=== PATIENT | male | born 1950 ===

== ENCOUNTER 2018-12-16 16:43 | Inpatient (IN) | payer MEDICARE ==
[2018-12-16] MEDS ORDERED: NACL 0.9% 1000 ML 1,000 ML IV ONE (17:16)
[2018-12-16 18:13] LABS: Hematocrit 39.9 % (35.5-45.6); Hemoglobin 13.8 gm/dl (11.8-15.2); Mean Corpuscular HGB Conc 35 % (32-34); Mean Corpuscular Volume 91 fl (84-94); Platelet Count 170 K/mm3 (140-440); Red Blood Count 4.38 M/mm3 (3.65-5.03); Red Cell Distribution Width 14.7 % (13.2-15.2)
--- NOTE | 2018-12-16 18:28 | Emergency Department Report ---
ED Altered Mental Status HPI - General Chief Complaint: Altered Mental Status Stated Complaint: BACK PAIN Time Seen by Provider: 12/16/18 17:03 Source: family Mode of arrival: Stretcher Limitations: Altered Mental Status - History of Present Illness Initial Comments: 68-year-old male presents to ED with altered mental status. Patient has history of alcohol abuse, hep C, liver cirrhosis. Patient lives with his sister who states that he has been lethargic since last night. Sister is unsure if his mental status is from possibly being intoxicated. Patient states his last alcoholic drink was this morning. Patient reports back and bilateral leg pain to nurse, however, denies pain when I ask. MD Complaint: altered mental status -: Last night Severity: moderate Consistency of Symptoms: constant Context: alcohol abuse, liver disease Associated Symptoms: denies: chest pain, fever/chills, headaches, nausea/vomiting - Related Data Home Medications Medication Instructions Recorded Confirmed Last Taken amLODIPine [Norvasc] 5 mg PO DAILY 12/16/18 12/16/18 Unknown Allergies Allergy/AdvReac Type Severity Reaction Status Date / Time Penicillins Allergy Unknown Verified 12/16/18 17:56 ED Review of Systems ROS: Stated complaint: BACK PAIN Other details as noted in HPI Comment: All other systems reviewed and negative Constitutional: denies: chills, fever Respiratory: denies: shortness of breath Cardiovascular: denies: chest pain Gastrointestinal: denies: vomiting Musculoskeletal: back pain Neurological: weakness (generalized) ED Past Medical Hx - Past Medical History Previous Medical History?: Yes Hx CVA: No Hx Congestive Heart Failure: No Hx Diabetes: No Hx Deep Vein Thrombosis: No Hx GERD: No Hx of Cancer: No Hx Arthritis: No Hx Headaches / Migraines: No Hx Asthma: No Hx COPD: No Hx Dementia: No - Surgical History Past Surgical History?: No - Social History Smoking Status: Current Every Day Smoker Substance Use Type: Alcohol, Marijuana - Medications Home Medications: Home Medications Medication Instructions Recorded Confirmed Last Taken Type amLODIPine [Norvasc] 5 mg PO DAILY 12/16/18 12/16/18 Unknown History ED Physical Exam - General Limitations: Altered Mental Status General appearance: lethargic - Head Head exam: Present: atraumatic, normocephalic - Eye Eye exam: Present: normal appearance, PERRL, EOMI - ENT ENT exam: Present: mucous membranes dry - Neck Neck exam: Present: normal inspection - Respiratory Respiratory exam: Present: normal lung sounds bilaterally. Absent: respiratory distress - Cardiovascular Cardiovascular Exam: Present: regular rate, normal rhythm - GI/Abdominal GI/Abdominal exam: Present: soft. Absent: distended, tenderness - Extremities Exam Extremities exam: Present: normal inspection - Back Exam Back exam: Absent: tenderness - Neurological Exam Neurological exam: Present: alert, altered, other (moves all extremities). Absent: oriented X3 (oriented to self and place (states he is at a clinic)) - Psychiatric Psychiatric exam: Present: normal affect, normal mood - Skin Skin exam: Present: warm, dry, intact, normal color ED Course Vital Signs 12/16/18 12/16/18 12/16/18 17:21 17:24 17:26 Temperature 97.5 F L Pulse Rate 136 H 88 Respiratory 17 20 Rate Blood Pressure 156/77 Blood Pressure [Left] O2 Sat by Pulse 100 Oximetry 12/16/18 12/16/18 12/16/18 17:30 18:00 18:41 Temperature Pulse Rate 85 95 H 100 H Respiratory 26 H 17 28 H Rate Blood Pressure 153/81 140/92 165/91 Blood Pressure [Left] O2 Sat by Pulse 98 99 98 Oximetry 12/16/18 12/16/18 12/16/18 18:51 19:00 19:11 Temperature Pulse Rate 95 H 104 H 99 H Respiratory 23 20 28 H Rate Blood Pressure 165/91 159/89 140/92 Blood Pressure [Left] O2 Sat by Pulse 99 97 Oximetry 12/16/18 12/16/18 12/16/18 19:20 19:21 19:30 Temperature 97.6 F Pulse Rate 96 H 95 H 90 Respiratory 16 14 13 Rate Blood Pressure 149/73 142/80 Blood Pressure 149/73 [Left] O2 Sat by Pulse 96 97 Oximetry 12/16/18 12/16/18 12/16/18 19:41 19:51 20:01 Temperature Pulse Rate 96 H Respiratory 20 24 27 H Rate Blood Pressure 142/80 142/80 142/80 Blood Pressure [Left] O2 Sat by Pulse 99 98 96 Oximetry 12/16/18 12/16/18 12/16/18 20:11 20:21 20:31 Temperature Pulse Rate Respiratory 25 H 27 H 16 Rate Blood Pressure 142/80 142/80 142/80 Blood Pressure [Left] O2 Sat by Pulse 95 95 97 Oximetry 12/16/18 12/16/18 12/16/18 20:41 20:51 21:00 Temperature Pulse Rate Respiratory 21 24 23 Rate Blood Pressure 142/80 142/80 142/68 Blood Pressure [Left] O2 Sat by Pulse 97 97 97 Oximetry 12/16/18 12/16/18 12/16/18 21:11 21:21 21:29 Temperature Pulse Rate Respiratory 19 19 16 Rate Blood Pressure 142/68 142/68 Blood Pressure [Left] O2 Sat by Pulse 97 97 Oximetry 12/16/18 12/16/18 12/16/18 21:31 21:41 21:50 Temperature 98 F Pulse Rate 78 Respiratory 24 24 16 Rate Blood Pressure 142/68 142/68 142/68 Blood Pressure 142/68 [Left] O2 Sat by Pulse 98 98 98 Oximetry - Lab Data Result diagrams: 12/17/18 05:14 12/17/18 05:14 Lab Results 12/16/18 12/16/18 12/16/18 Range/Units 17:49 17:49 17:49 WBC 7.1 (4.5-11.0) K/mm3 RBC 4.38 (3.65-5.03) M/mm3 Hgb 13.8 (11.8-15.2) gm/dl Hct 39.9 (35.5-45.6) % MCV 91 (84-94) fl MCH 32 (28-32) pg MCHC 35 H (32-34) % RDW 14.7 (13.2-15.2) % Plt Count 170 (140-440) K/mm3 Add Manual Diff Complete Total Counted 100 Seg Neuts % (Manual) 94.0 H (40.0-70.0) % Band Neutrophils % 0 % Lymphocytes % (Manual) 5.0 L (13.4-35.0) % Reactive Lymphs % (Man) 0 % Monocytes % (Manual) 1.0 (0.0-7.3) % Eosinophils % (Manual) 0 (0.0-4.3) % Basophils % (Manual) 0 (0.0-1.8) % Metamyelocytes % 0 % Myelocytes % 0 % Promyelocytes % 0 % Blast Cells % 0 % Nucleated RBC % Not Reportable Seg Neutrophils # Man 6.7 (1.8-7.7) K/mm3 Band Neutrophils # 0.0 K/mm3 Lymphocytes # (Manual) 0.4 L (1.2-5.4) K/mm3 Abs React Lymphs (Man) 0.0 K/mm3 Monocytes # (Manual) 0.1 (0.0-0.8) K/mm3 Eosinophils # (Manual) 0.0 (0.0-0.4) K/mm3 Basophils # (Manual) 0.0 (0.0-0.1) K/mm3 Metamyelocytes # 0.0 K/mm3 Myelocytes # 0.0 K/mm3 Promyelocytes # 0.0 K/mm3 Blast Cells # 0.0 K/mm3 WBC Morphology Not Reportable Hypersegmented Neuts Not Reportable Hyposegmented Neuts Not Reportable Hypogranular Neuts Not Reportable Smudge Cells Not Reportable Toxic Granulation Not Reportable Toxic Vacuolation Not Reportable Dohle Bodies Not Reportable Pelger-Huet Anomaly Not Reportable Mildred Rods Not Reportable Platelet Estimate Consistent w auto Clumped Platelets Not Reportable Plt Clumps, EDTA Not Reportable Large Platelets Not Reportable Giant Platelets Not Reportable Platelet Satelliting Not Reportable Plt Morphology Comment Not Reportable RBC Morphology Not Reportable Dimorphic RBCs Not Reportable Polychromasia Not Reportable Hypochromasia Not Reportable Poikilocytosis Few Anisocytosis Few Microcytosis Not Reportable Macrocytosis Not Reportable Spherocytes Not Reportable Pappenheimer Bodies Not Reportable Sickle Cells Not Reportable Target Cells Not Reportable Tear Drop Cells Not Reportable Ovalocytes Not Reportable Helmet Cells Not Reportable [place] Bodies Not Reportable [place] Rings Not Reportable Aneudy Cells Not Reportable Bite Cells Not Reportable Crenated Cell Not Reportable Elliptocytes Not Reportable Acanthocytes (Spur) Not Reportable Rouleaux Not Reportable Hemoglobin C Crystals Not Reportable Schistocytes Not Reportable Malaria parasites Not Reportable Skyler Bodies Not Reportable Hem Pathologist Commnt No Sodium 135 L (137-145) mmol/L Potassium 4.6 (3.6-5.0) mmol/L Chloride 96.5 L (98-107) mmol/L Carbon Dioxide 21 L (22-30) mmol/L Anion Gap 22 mmol/L BUN 8 L (9-20) mg/dL Creatinine 0.8 (0.8-1.5) mg/dL Estimated GFR > 60 ml/min BUN/Creatinine Ratio 10 % Glucose 66 L (75-100) mg/dL POC Glucose (70-105) Calcium 9.5 (8.4-10.2) mg/dL Total Bilirubin 1.10 (0.1-1.2) mg/dL AST 111 H (5-40) units/L ALT 28 (7-56) units/L Alkaline Phosphatase 144 H (35-129) units/L Ammonia 33.0 (25-60) umol/L Total Protein 7.8 (6.3-8.2) g/dL Albumin 3.7 L (3.9-5) g/dL Albumin/Globulin Ratio 0.9 % Urine Color (Yellow) Urine Turbidity (Clear) Urine pH (5.0-7.0) Ur Specific [place] (1.003-1.030) Urine Protein (Negative) mg/dL Urine Glucose (UA) (Negative) mg/dL Urine Ketones (Negative) mg/dL Urine Blood (Negative) Urine Nitrite (Negative) Urine Bilirubin (Negative) Urine Urobilinogen (<2.0) mg/dL Ur Leukocyte Esterase (Negative) Urine WBC (Auto) (0.0-6.0) /HPF Urine RBC (Auto) (0.0-6.0) /HPF Urine Bacteria (Auto) (Negative) /HPF Urine Mucus /HPF Salicylates (2.8-20.0) mg/dL Urine Opiates Screen Urine Methadone Screen Acetaminophen (10.0-30.0) ug/mL Ur Barbiturates Screen Ur Phencyclidine Scrn Ur Amphetamines Screen U Benzodiazepines Scrn Urine Cocaine Screen U Marijuana (THC) Screen Drugs of Abuse Note Plasma/Serum Alcohol (0-0.07) % 12/16/18 12/16/18 12/16/18 Range/Units 17:49 17:49 17:49 WBC (4.5-11.0) K/mm3 RBC (3.65-5.03) M/mm3 Hgb (11.8-15.2) gm/dl Hct (35.5-45.6) % MCV (84-94) fl MCH (28-32) pg MCHC (32-34) % RDW (13.2-15.2) % Plt Count (140-440) K/mm3 Add Manual Diff Total Counted Seg Neuts % (Manual) (40.0-70.0) % Band Neutrophils % % Lymphocytes % (Manual) (13.4-35.0) % Reactive Lymphs % (Man) % Monocytes % (Manual) (0.0-7.3) % Eosinophils % (Manual) (0.0-4.3) % Basophils % (Manual) (0.0-1.8) % Metamyelocytes % % Myelocytes % % Promyelocytes % % Blast Cells % % Nucleated RBC % Seg Neutrophils # Man (1.8-7.7) K/mm3 Band Neutrophils # K/mm3 Lymphocytes # (Manual) (1.2-5.4) K/mm3 Abs React Lymphs (Man) K/mm3 Monocytes # (Manual) (0.0-0.8) K/mm3 Eosinophils # (Manual) (0.0-0.4) K/mm3 Basophils # (Manual) (0.0-0.1) K/mm3 Metamyelocytes # K/mm3 Myelocytes # K/mm3 Promyelocytes # K/mm3 Blast Cells # K/mm3 WBC Morphology Hypersegmented Neuts Hyposegmented Neuts Hypogranular Neuts Smudge Cells Toxic Granulation Toxic Vacuolation Dohle Bodies Pelger-Huet Anomaly Mildred Rods Platelet Estimate Clumped Platelets Plt Clumps, EDTA Large Platelets Giant Platelets Platelet Satelliting Plt Morphology Comment RBC Morphology Dimorphic RBCs Polychromasia Hypochromasia Poikilocytosis Anisocytosis Microcytosis Macrocytosis Spherocytes Pappenheimer Bodies Sickle Cells Target Cells Tear Drop Cells Ovalocytes Helmet Cells [place] Bodies [place] Rings Wing Cells Bite Cells Crenated Cell Elliptocytes Acanthocytes (Spur) Rouleaux Hemoglobin C Crystals Schistocytes Malaria parasites Skyler Bodies Hem Pathologist Commnt Sodium (137-145) mmol/L Potassium (3.6-5.0) mmol/L Chloride (98-107) mmol/L Carbon Dioxide (22-30) mmol/L Anion Gap mmol/L BUN (9-20) mg/dL Creatinine (0.8-1.5) mg/dL Estimated GFR ml/min BUN/Creatinine Ratio % Glucose (75-100) mg/dL POC Glucose (70-105) Calcium (8.4-10.2) mg/dL Total Bilirubin (0.1-1.2) mg/dL AST (5-40) units/L ALT (7-56) units/L Alkaline Phosphatase (35-129) units/L Ammonia (25-60) umol/L Total Protein (6.3-8.2) g/dL Albumin (3.9-5) g/dL Albumin/Globulin Ratio % Urine Color (Yellow) Urine Turbidity (Clear) Urine pH (5.0-7.0) Ur Specific [place] (1.003-1.030) Urine Protein (Negative) mg/dL Urine Glucose (UA) (Negative) mg/dL Urine Ketones (Negative) mg/dL Urine Blood (Negative) Urine Nitrite (Negative) Urine Bilirubin (Negative) Urine Urobilinogen (<2.0) mg/dL Ur Leukocyte Esterase (Negative) Urine WBC (Auto) (0.0-6.0) /HPF Urine RBC (Auto) (0.0-6.0) /HPF Urine Bacteria (Auto) (Negative) /HPF Urine Mucus /HPF Salicylates < 0.3 L (2.8-20.0) mg/dL Urine Opiates Screen Urine Methadone Screen Acetaminophen < 5.0 L (10.0-30.0) ug/mL Ur Barbiturates Screen Ur Phencyclidine Scrn Ur Amphetamines Screen U Benzodiazepines Scrn Urine Cocaine Screen U Marijuana (THC) Screen Drugs of Abuse Note Plasma/Serum Alcohol < 0.01 (0-0.07) % 12/16/18 12/16/18 12/16/18 Range/Units 19:27 19:32 19:36 WBC (4.5-11.0) K/mm3 RBC (3.65-5.03) M/mm3 Hgb (11.8-15.2) gm/dl Hct (35.5-45.6) % MCV (84-94) fl MCH (28-32) pg MCHC (32-34) % RDW (13.2-15.2) % Plt Count (140-440) K/mm3 Add Manual Diff Total Counted Seg Neuts % (Manual) (40.0-70.0) % Band Neutrophils % % Lymphocytes % (Manual) (13.4-35.0) % Reactive Lymphs % (Man) % Monocytes % (Manual) (0.0-7.3) % Eosinophils % (Manual) (0.0-4.3) % Basophils % (Manual) (0.0-1.8) % Metamyelocytes % % Myelocytes % % Promyelocytes % % Blast Cells % % Nucleated RBC % Seg Neutrophils # Man (1.8-7.7) K/mm3 Band Neutrophils # K/mm3 Lymphocytes # (Manual) (1.2-5.4) K/mm3 Abs React Lymphs (Man) K/mm3 Monocytes # (Manual) (0.0-0.8) K/mm3 Eosinophils # (Manual) (0.0-0.4) K/mm3 Basophils # (Manual) (0.0-0.1) K/mm3 Metamyelocytes # K/mm3 Myelocytes # K/mm3 Promyelocytes # K/mm3 Blast Cells # K/mm3 WBC Morphology Hypersegmented Neuts Hyposegmented Neuts Hypogranular Neuts Smudge Cells Toxic Granulation Toxic Vacuolation Dohle Bodies Pelger-Huet Anomaly Mildred Rods Platelet Estimate Clumped Platelets Plt Clumps, EDTA Large Platelets Giant Platelets Platelet Satelliting Plt Morphology Comment RBC Morphology Dimorphic RBCs Polychromasia Hypochromasia Poikilocytosis Anisocytosis Microcytosis Macrocytosis Spherocytes Pappenheimer Bodies Sickle Cells Target Cells Tear Drop Cells Ovalocytes Helmet Cells [place] Bodies [place] Rings Wing Cells Bite Cells Crenated Cell Elliptocytes Acanthocytes (Spur) Rouleaux Hemoglobin C Crystals Schistocytes Malaria parasites Skyler Bodies Hem Pathologist Commnt Sodium (137-145) mmol/L Potassium (3.6-5.0) mmol/L Chloride (98-107) mmol/L Carbon Dioxide (22-30) mmol/L Anion Gap mmol/L BUN (9-20) mg/dL Creatinine (0.8-1.5) mg/dL Estimated GFR ml/min BUN/Creatinine Ratio % Glucose (75-100) mg/dL POC Glucose 49 L (70-105) Calcium (8.4-10.2) mg/dL Total Bilirubin (0.1-1.2) mg/dL AST (5-40) units/L ALT (7-56) units/L Alkaline Phosphatase (35-129) units/L Ammonia (25-60) umol/L Total Protein (6.3-8.2) g/dL Albumin (3.9-5) g/dL Albumin/Globulin Ratio % Urine Color Yellow (Yellow) Urine Turbidity Clear (Clear) Urine pH 5.0 (5.0-7.0) Ur Specific [place] 1.012 (1.003-1.030) Urine Protein <15 mg/dl (Negative) mg/dL Urine Glucose (UA) Neg (Negative) mg/dL Urine Ketones Tr (Negative) mg/dL Urine Blood Sm (Negative) Urine Nitrite Neg (Negative) Urine Bilirubin Neg (Negative) Urine Urobilinogen < 2.0 (<2.0) mg/dL Ur Leukocyte Esterase Neg (Negative) Urine WBC (Auto) 1.0 (0.0-6.0) /HPF Urine RBC (Auto) 2.0 (0.0-6.0) /HPF Urine Bacteria (Auto) 1+ (Negative) /HPF Urine Mucus Few /HPF Salicylates (2.8-20.0) mg/dL Urine Opiates Screen Presumptive negative Urine Methadone Screen Presumptive negative Acetaminophen (10.0-30.0) ug/mL Ur Barbiturates Screen Presumptive negative Ur Phencyclidine Scrn Presumptive negative Ur Amphetamines Screen Presumptive negative U Benzodiazepines Scrn Presumptive positive Urine Cocaine Screen Presumptive negative U Marijuana (THC) Screen Presumptive positive Drugs of Abuse Note Disclamer Plasma/Serum Alcohol (0-0.07) % - Radiology Data Radiology results: report reviewed, image reviewed - Medical Decision Making 68 yo M with altered mental status since yesterday. Hx of alcohol abuse, Hep C, liver cirrhosis. CT head normal. ETOH level negative. Ammonia within normal range. Vitals normal, pt afebrile. WBCs normal, no evidence of acute infection. Glucose resulted at 66 on labs. Accucheck was done and resulted at 49. One amp of D50 given. Drug screen also positive for benzos and marijuana. It is unclear if pt has prescription for any benzodiazepines. This could poss ibly be cause of mental status change. Pt admitted to hospitalist, Dr King, for further management. - Differential Diagnosis intoxication, hepatic encephalopathy, intracranial abnormlity, infection Critical care attestation.: If time is entered above; I have spent that time in minutes in the direct care of this critically ill patient, excluding procedure time. ED Disposition Clinical Impression: Encephalopathy, Hypoglycemia, Benzodiazepine intoxication Disposition: DC-09 OP ADMIT IP TO THIS HOSP Is pt being admited?: Yes Condition: Stable Time of Disposition: 19:30
--- NOTE | 2018-12-16 18:30 | History and Physical Report ---
History of Present Illness Chief complaint: He is getting more confused History of present illness: 68 YO Male with HCV, ETOH Dependence with Cirrhosis, Hepatic Failure, Nicotine Dependence presents to ED for evaluation. Pt is confused, Stuporous and unable to provide history. Pt history is provided by sister who is at bedside during exam and interview. Pt sister reports that patient has experienced a decreased level of consciousness over the past 1 day with worsening symptoms over the past 12 hours. As per sister, the patient had an drink of alcohol this morning. EMS notified and upon arrival the patient found to be Encephalopathic. Pt transported to [facility]. Pt seen and evaluated in ED and found to have Encepha lopathy, Acidosis, Hypoglycemia, Cirrhosis, and Liver Failure. No further history obtainable. Pt has a positive gag reflex and in able to protect his airway. Pt admitted to medical floor. No prior admission for review. All listed medication reconciled at time of admission. Past History Past Medical History: hepatitis, other (cirrhosis) Past Surgical History: No surgical history, Other (reviewed) Social history: single, smoking Family history: no significant family history (reviewed) Medications and Allergies Allergies Allergy/AdvReac Type Severity Reaction Status Date / Time Penicillins Allergy Unknown Verified 12/16/18 17:56 Home Medications Medication Instructions Recorded Confirmed Last Taken Type amLODIPine [Norvasc] 5 mg PO DAILY 12/16/18 12/16/18 Unknown History Review of Systems ROS unobtainable: due to mental status Exam - Constitutional Vitals: Temp Pulse Resp BP Pulse Ox 97.5 F L 88 20 156/77 100 12/16/18 17:24 12/16/18 17:26 12/16/18 17:26 12/16/18 17:26 12/16/18 17:26 General appearance: Present: mild distress, cachectic, disheveled - EENT Eyes: Present: miosis ENT: hearing intact, clear oral mucosa - Neck Neck: Present: supple, normal ROM - Respiratory Respiratory effort: normal Respiratory: bilateral: CTA - Cardiovascular Heart Sounds: Present: S1 & S2. Absent: rub, click - Extremities Extremities: pulses symmetrical, No edema Peripheral Pulses: within normal limits - Abdominal General gastrointestinal: Present: soft, non-tender, non-distended, normal bowel sounds Male genitourinary: Present: normal - Integumentary Integumentary: Present: clear, warm, dry, clammy, decreased turgor - Musculoskeletal Musculoskeletal: generalized weakness - Psychiatric Psychiatric: no appropriate mood/affect, no intact judgment & insight, no memory intact - Neurologic Neurologic: CNII-XII intact, moves all extremities, no gait normal Results - Labs CBC & Chem 7: 12/16/18 17:49 12/16/18 17:49 Labs: Abnormal lab results 12/16/18 Range/Units 17:49 MCHC 35 H (32-34) % Assessment and Plan - Patient Problems (1) Encephalopathy Current Visit: No Status: Acute Plan to address problem: CT Head, Neuro checks, thyroid panel, neuro checks, seizure precautions, aspiration precautions, fall precautions. . (2) Liver failure Current Visit: No Status: Acute Qualifiers: Hepatic coma status: with hepatic coma Plan to address problem: CT Head, Neuro check, Liver Function Tests, (3) Acidosis Current Visit: No Status: Acute Plan to address problem: IVF resuscitation therapy, repeat bmp in AM. (4) Nicotine dependence Current Visit: No Status: Acute Qualifiers: Nicotine product type: cigarettes Plan to address problem: Smoking cessation counseling, (5) Hypoglycemia Current Visit: No Status: Acute Plan to address problem: D5 Infusion, accu check, supportive care. (6) DVT prophylaxis Current Visit: No Status: Acute Plan to address problem: SCD to BLE while in bed,
--- NOTE | 2018-12-16 18:31 | Cat Scan Report ---
PROCEDURE: CT HEAD/BRAIN WO CON TECHNIQUE: Computerized tomography of the head was performed without contrast material. CT DOSE LENGTH PRODUCT: 1841 mGycm HISTORY: ams COMPARISONS: None . FINDINGS: Cerebrovascular atherosclerotic calcification is present in the skull base arteries. No acute air-fluid level visualized in the included air-filled sinuses. Bone windows demonstrate no acute fracture. There is ventricular and sulcal prominence compatible with age-appropriate global cerebrocortical atr ophy. Low attenuation regions in the cerebral white matter, while nonspecific, are present and usually attr ibuted to chronic ischemic gliosis. It can occur secondary to the normal aging process, hypertension, or arterial sclerotic vascular dise ase. The differential includes demyelination in the appropriate clinical setting. The brain contains no mass, mass effect, hemorrhage, or acute infarct. There is no extra-axial intracranial bleed or brain bleed. There is no midline shift. IMPRESSION: No acute CVA, intracranial bleed, or brain mass This document is electronically signed by Ender Yanez MD., December 16 2018 06:29:58 PM ET
[2018-12-16 18:35] LABS: Alanine Aminotransferase 28 units/L (7-56); Albumin 3.7 g/dL (3.9-5); BUN/Creatinine Ratio 10; Blood Urea Nitrogen 8 mg/dL (9-20); Calcium 9.5 mg/dL (8.4-10.2); Hemolysis Index 1
[2018-12-16 19:18] LABS: Anisocytosis Few; Basophils % (Manual) 0 % (0.0-1.8); Eosinophils % (Manual) 0 % (0.0-4.3); Platelet Estimate Consistent w Auto; Total Cells Counted 100
[2018-12-16 19:19] LABS: Poikilocytosis Few
[2018-12-16] MEDS ORDERED: D50W (25GM) Syringe IV ONE (19:28)
--- NOTE | 2018-12-16 19:29 | XRay Report ---
PROCEDURE: Chest. TECHNIQUE: Portable AP view. HISTORY: Altered mental status. COMPARISONS: None. FINDINGS: The heart size is normal. There is faint calcification in the aortic arch. The lungs are clear and mi ldly hyperinflated. There are no pleural effusions. The soft tissues and regional skeleton are unrema rkable. IMPRESSION: Mild COPD. This document is electronically signed by Binh Ramirez MD., December 16 2018 07:28:12 PM ET
[2018-12-16 19:46] LABS: Bacteria,Urine 1+ /HPF (Negative); Bilirubin,Urine NEG (Negative); Blood,Urine SM (Negative); Color,Urine Yellow (Yellow); Mucus,Urine FEW /HPF; Protein,Urine <15 mg/dL mg/dL (Negative); Urobilinogen,Urine < 2.0 mg/dL (<2.0)
[2018-12-16 19:53] LABS: Amphetamine Screen,Urine PRESUMPTIVE NEGATIVE; Cocaine Screen,Urine PRESUMPTIVE NEGATIVE; Methadone Screen,Urine PRESUMPTIVE NEGATIVE; Opiate Screen,Urine PRESUMPTIVE NEGATIVE
[2018-12-16] MEDS ORDERED: SODIUM CHLORIDE FLUSH SYRINGE 10 ML IV PRN (20:00)
[2018-12-16] MEDS ORDERED: PROVENTIL IH PRN (20:00)
[2018-12-16] MEDS ORDERED: ZOFRAN IV PRN (20:00)
[2018-12-16 20:21] LABS: Benzodiazepines Screen,Urine PRESUMPTIVE POSITIVE; Cannabinoid Screen,Urine PRESUMPTIVE POSITIVE
[2018-12-16] MEDS ORDERED: VITAMIN B-1 100 MG, FOLVITE 1 MG, INFUVITE 10 ML in NACL 0.9% 1000 ML 1,000 ML IV ONE (21:00)
[2018-12-16 21:19] LABS: Free T4 (Free Thyroxine) 1.17 ng/dL (0.76-1.46)
[2018-12-16] MEDS: SODIUM CHLORIDE FLUSH SYRINGE 10 ML IV SCH (22:00)
[2018-12-17 05:42] LABS: Basophils # (Auto) 0.1 K/mm3 (0.0-0.1); Eosinophils % (Auto) 0.5 % (0.0-4.3); Hematocrit 37.4 % (35.5-45.6); Hemoglobin 12.8 gm/dl (11.8-15.2); Lymphocytes # (Auto) 1.2 K/mm3 (1.2-5.4); Lymphocytes % (Auto) 18.6 % (13.4-35.0); Mean Corpuscular HGB Conc 34 % (32-34); Mean Corpuscular Volume 91 fl (84-94); Monocytes # (Auto) 0.7 K/mm3 (0.0-0.8); Monocytes % (Auto) 11.3 % (0.0-7.3); Platelet Count 146 K/mm3 (140-440); Red Cell Distribution Width 14.7 % (13.2-15.2)
[2018-12-17 06:05] LABS: Alanine Aminotransferase 21 units/L (7-56); BUN/Creatinine Ratio 10; Blood Urea Nitrogen 8 mg/dL (9-20); Calcium 8.6 mg/dL (8.4-10.2); Hemolysis Index 4
[2018-12-17] MEDS: TYLENOL PO PRN (09:43)
[2018-12-17] MEDS ORDERED: ATIVAN IV PRN (12:41)
--- NOTE | 2018-12-17 12:44 | Progress Note ---
Assessment and Plan Assessment and plan: 68 YO Male with HCV, ETOH Dependence with Cirrhosis, Hepatic Failure, Nicotine Dependence presents to ED for evaluation. P he was brought in by his sister because he was stuporous and confused, has a history of alcohol abuse and marijuana abuse and tobacco abuse Past History Past Medical History: hepatitis, other (cirrhosis) Encephalopathy CT Head, Neuro checks, thyroid panel, neuro checks, seizure precautions, aspiration precautions, fall precautions. . Liver failure CT Head, Neuro check, Liver Function Tests, Acidosis IVF resuscitation therapy, repeat bmp in AM. etoh dependence and withdrawal - ciwa protocol, thiamine and folate -d5 containing IVF -preventative health counseling performed for 17 minutes Nicotine dependence Smoking cessation counseling, > 10 minutes -nicotine patch prn htn cont norvasc Hypoglycemia D5 Infusion, accu check, supportive care. DVT prophylaxis SCD to BLE while in bed, History Interval history: Patient has been last week, less confused, has very poor appetite Review of systems Constitutional: No fevers CVS: No chest pain, no orthopnea, no dyspnea on exertion, no pedal edema GI: No abdominal pain, no diarrhea, no vomiting, no constipation Respiratory: No shortness of breath, no wheezing, no coughing Hospitalist Physical - Physical exam Narrative exam: General.: Appears chronically ill, cachectic HEENT: Moist mucous membranes, extraocular muscles intact, no lymphadenopathy Neck: supple Cardiac: S1-S2 heard Lungs: clear to auscultation bilaterally Abdomen: soft , nontender, nondistended, bowel sounds positive Extremities: no edema clubbing or cyanosis Skin: no rash or lesions Neurologic: no gross focal deficits Psych: calm, and cooperative - Constitutional Vitals: Temp Pulse Resp BP Pulse Ox 97.6 F 51 L 18 152/76 100 12/17/18 11:50 12/17/18 11:50 12/17/18 11:50 12/17/18 11:50 12/17/18 11:50 General appearance: Present: mild distress, cachectic, disheveled Results - Labs CBC & Chem 7: 12/17/18 05:14 12/17/18 13:23 Labs: Laboratory Last Values WBC 6.4 K/mm3 (4.5-11.0) 12/17/18 05:14 RBC 4.10 M/mm3 (3.65-5.03) 12/17/18 05:14 Hgb 12.8 gm/dl (11.8-15.2) 12/17/18 05:14 Hct 37.4 % (35.5-45.6) 12/17/18 05:14 MCV 91 fl (84-94) 12/17/18 05:14 MCH 31 pg (28-32) 12/17/18 05:14 MCHC 34 % (32-34) 12/17/18 05:14 RDW 14.7 % (13.2-15.2) 12/17/18 05:14 Plt Count 146 K/mm3 (140-440) 12/17/18 05:14 Lymph % (Auto) 18.6 % (13.4-35.0) 12/17/18 05:14 [place] % (Auto) 11.3 % (0.0-7.3) H 12/17/18 05:14 Eos % (Auto) 0.5 % (0.0-4.3) 12/17/18 05:14 Baso % (Auto) 1.0 % (0.0-1.8) 12/17/18 05:14 Lymph # 1.2 K/mm3 (1.2-5.4) 12/17/18 05:14 [place] # 0.7 K/mm3 (0.0-0.8) 12/17/18 05:14 Eos # 0.0 K/mm3 (0.0-0.4) 12/17/18 05:14 Baso # 0.1 K/mm3 (0.0-0.1) 12/17/18 05:14 Add Manual Diff Complete 12/16/18 17:49 Total Counted 100 12/16/18 17:49 Seg Neutrophils % 68.6 % (40.0-70.0) 12/17/18 05:14 Seg Neuts % (Manual) 94.0 % (40.0-70.0) H 12/16/18 17:49 0 % 12/16/18 17:49 5.0 % (13.4-35.0) L 12/16/18 17:49 Reactive Lymphs % (Man) 0 % 12/16/18 17:49 1.0 % (0.0-7.3) 12/16/18 17:49 0 % (0.0-4.3) 12/16/18 17:49 0 % (0.0-1.8) 12/16/18 17:49 0 % 12/16/18 17:49 0 % 12/16/18 17:49 0 % 12/16/18 17:49 0 % 12/16/18 17:49 Nucleated RBC % Not Reportable 12/16/18 17:49 Seg Neutrophils # 4.4 K/mm3 (1.8-7.7) 12/17/18 05:14 Seg Neutrophils # Man 6.7 K/mm3 (1.8-7.7) 12/16/18 17:49 Band Neutrophils # 0.0 K/mm3 12/16/18 17:49 0.4 K/mm3 (1.2-5.4) L 12/16/18 17:49 Abs React Lymphs (Man) 0.0 K/mm3 12/16/18 17:49 0.1 K/mm3 (0.0-0.8) 12/16/18 17:49 0.0 K/mm3 (0.0-0.4) 12/16/18 17:49 0.0 K/mm3 (0.0-0.1) 12/16/18 17:49 0.0 K/mm3 12/16/18 17:49 0.0 K/mm3 12/16/18 17:49 0.0 K/mm3 12/16/18 17:49 Blast Cells # 0.0 K/mm3 12/16/18 17:49 WBC Morphology Not Reportable 12/16/18 17:49 Hypersegmented Neuts Not Reportable 12/16/18 17:49 Hyposegmented Neuts Not Reportable 12/16/18 17:49 Hypogranular Neuts Not Reportable 12/16/18 17:49 Not Reportable 12/16/18 17:49 Not Reportable 12/16/18 17:49 Not Reportable 12/16/18 17:49 Not Reportable 12/16/18 17:49 Not Reportable 12/16/18 17:49 Not Reportable 12/16/18 17:49 Consistent w auto 12/16/18 17:49 Not Reportable 12/16/18 17:49 Plt Clumps, EDTA Not Reportable 12/16/18 17:49 Not Reportable 12/16/18 17:49 Not Reportable 12/16/18 17:49 Not Reportable 12/16/18 17:49 Plt Morphology Comment Not Reportable 12/16/18 17:49 RBC Morphology Not Reportable 12/16/18 17:49 Dimorphic RBCs Not Reportable 12/16/18 17:49 Not Reportable 12/16/18 17:49 Not Reportable 12/16/18 17:49 Few 12/16/18 17:49 Few 12/16/18 17:49 Not Reportable 12/16/18 17:49 Not Reportable 12/16/18 17:49 Not Reportable 12/16/18 17:49 Not Reportable 12/16/18 17:49 Not Reportable 12/16/18 17:49 Not Reportable 12/16/18 17:49 Not Reportable 12/16/18 17:49 Not Reportable 12/16/18 17:49 Not Reportable 12/16/18 17:49 Not Reportable 12/16/18 17:49 Not Reportable 12/16/18 17:49 Not Reportable 12/16/18 17:49 Not Reportable 12/16/18 17:49 Not Reportable 12/16/18 17:49 Not Reportable 12/16/18 17:49 Acanthocytes (Spur) Not Reportable 12/16/18 17:49 Rouleaux Not Reportable 12/16/18 17:49 Not Reportable 12/16/18 17:49 Not Reportable 12/16/18 17:49 Not Reportable 12/16/18 17:49 Not Reportable 12/16/18 17:49 Hem Pathologist Commnt No 12/16/18 17:49 Sodium 136 mmol/L (137-145) L 12/17/18 05:14 Potassium 4.1 mmol/L (3.6-5.0) 12/17/18 05:14 Chloride 101.5 mmol/L (98-107) 12/17/18 05:14 Carbon Dioxide 21 mmol/L (22-30) L 12/17/18 05:14 18 mmol/L 12/17/18 05:14 BUN 8 mg/dL (9-20) L 12/17/18 05:14 0.8 mg/dL (0.8-1.5) 12/17/18 05:14 Estimated GFR > 60 ml/min 12/17/18 05:14 10 % 06/15/19 05:14 Glucose 72 mg/dL (75-100) L 12/17/18 05:14 POC Glucose 138 (70-105) H 12/16/18 20:33 Calcium 8.6 mg/dL (8.4-10.2) 12/17/18 05:14 1.00 mg/dL (0.1-1.2) 12/17/18 05:14 AST 73 units/L (5-40) H 12/17/18 05:14 ALT 21 units/L (7-56) 12/17/18 05:14 115 units/L (35-129) 12/17/18 05:14 33.0 umol/L (25-60) 12/16/18 17:49 6.5 g/dL (6.3-8.2) 12/17/18 05:14 3.0 g/dL (3.9-5) L 12/17/18 05:14 0.9 % 12/17/18 05:14 TSH 1.770 mlU/mL (0.270-4.200) 12/16/18 Unknown Free T4 1.17 ng/dL (0.76-1.46) 12/16/18 Unknown Yellow (Yellow) 12/16/18 19:27 Clear (Clear) 12/16/18 19:27 5.0 (5.0-7.0) 12/16/18 19:27 Ur Specific [place] 1.012 (1.003-1.030) 12/16/18 19:27 <15 mg/dl mg/dL (Negative) 12/16/18 19:27 Neg mg/dL (Negative) 12/16/18 19:27 Tr mg/dL (Negative) 12/16/18 19:27 Sm (Negative) 12/16/18 19:27 Neg (Negative) 12/16/18 19:27 Neg (Negative) 12/16/18 19:27 < 2.0 mg/dL (<2.0) 12/16/18 19:27 Ur Leukocyte Esterase Neg (Negative) 12/16/18 19:27 1.0 /HPF (0.0-6.0) 12/16/18 19:27 2.0 /HPF (0.0-6.0) 12/16/18 19:27 1+ /HPF (Negative) 12/16/18 19:27 Few /HPF 12/16/18 19:27 Salicylates < 0.3 mg/dL (2.8-20.0) L 12/16/18 17:49 Presumptive negative 12/16/18 19:36 Presumptive negative 12/16/18 19:36 Acetaminophen < 5.0 ug/mL (10.0-30.0) L 12/16/18 17:49 Ur Barbiturates Screen Presumptive negative 12/16/18 19:36 Ur Phencyclidine Scrn Presumptive negative 12/16/18 19:36 Ur Amphetamines Screen Presumptive negative 12/16/18 19:36 U Benzodiazepines Scrn Presumptive positive 12/16/18 19:36 Presumptive negative 12/16/18 19:36 U Marijuana (THC) Screen Presumptive positive 12/16/18 19:36 Disclamer 12/16/18 19:36 Plasma/Serum Alcohol < 0.01 % (0-0.07) 12/16/18 17:49 Active Medications - Current Medications Current Medications: Generic Name Dose Route Start Last Admin Trade Name Freq PRN Reason Stop Dose Admin Acetaminophen 650 mg 12/16/18 20:00 12/17/18 09:43 Tylenol PO 650 mg Q4H PRN Administration Pain MILD(1-3)/Fever >100.5/ESPITIA Albuterol 2.5 mg 12/16/18 20:00 Proventil IH Q4HRT PRN Shortness Of Breath Amlodipine Besylate 5 mg 12/18/18 10:00 Norvasc PO DAILY RICO Lorazepam 2 mg 12/17/18 12:41 Ativan PO Q1H PRN CIWA-Ar 8-15 Lorazepam 4 mg 12/17/18 12:41 Ativan IV Q1H PRN CIWA-Ar 16-25 Lorazepam 4 mg 12/17/18 12:41 Ativan IV Q15MIN PRN CIWA-Ar >25 Ondansetron HCl 4 mg 12/16/18 20:00 Zofran IV Q8H PRN Nausea And Vomiting Sodium Chloride 10 ml 12/16/18 22:00 12/16/18 22:00 Sodium Chloride Flush Syringe 10 Ml IV 10 ml BID RICO Administration Sodium Chloride 10 ml 12/16/18 20:00 Sodium Chloride Flush Syringe 10 Ml IV PRN PRN LINE FLUSH
[2018-12-17] MEDS: D5/0.45NS 1,000 ML IV SCH (13:39)
[2018-12-17] MEDS: VITAMIN B-1 PO SCH (13:39)
[2018-12-17] MEDS: FOLVITE PO SCH (13:40)
[2018-12-17] MEDS: SODIUM CHLORIDE FLUSH SYRINGE 10 ML IV SCH ×2 (13:41→22:53)
[2018-12-17] MEDS: NORVASC PO SCH (13:51)
[2018-12-17 14:36] LABS: Albumin 3.1 g/dL (3.9-5); BUN/Creatinine Ratio 13; Blood Urea Nitrogen 9 mg/dL (9-20); Calcium 8.9 mg/dL (8.4-10.2); Hemolysis Index 54
[2018-12-17] MEDS: ATIVAN IV PRN (22:56)
[2018-12-18] MEDS: ATIVAN IV PRN (04:57)
[2018-12-18] MEDS: ATIVAN PO PRN ×3 (06:21→21:36)
[2018-12-18] MEDS: HABITROL TD SCH (09:48)
[2018-12-18] MEDS: SODIUM CHLORIDE FLUSH SYRINGE 10 ML IV SCH ×2 (09:48→21:37)
[2018-12-18] MEDS: VITAMIN B-1 PO SCH (09:48)
[2018-12-18] MEDS: FOLVITE PO SCH (09:48)
[2018-12-18] MEDS: NORVASC PO SCH (09:49)
--- NOTE | 2018-12-18 10:51 | Progress Note ---
Assessment and Plan Assessment and plan: 68 YO Male with HCV, ETOH Dependence with Cirrhosis, Hepatic Failure, Nicotine Dependence presents to ED for evaluation. P he was brought in by his sister because he was stuporous and confused, has a history of alcohol abuse and marijuana abuse and tobacco abuse Past History Past Medical History: hepatitis, other (cirrhosis) Acute metabolic Encephalopathy CT Head, Neuro checks, thyroid panel, neuro checks, seizure precautions, aspiration precautions, fall precautions. . Liver failure CT Head, Neuro check, Liver Function Tests, Acidosis IVF resuscitation therapy, repeat bmp in AM. etoh dependence and withdrawal - ciwa protocol, thiamine and folate -d5 containing IVF -preventative health counseling performed for 17 minutes Nicotine dependence Smoking cessation counseling, > 10 minutes -nicotine patch prn htn cont norvasc Hypoglycemia D5 Infusion, accu check, supportive care. Severe malnutrition Continue nutritional supplements, dietitian consult DVT prophylaxis SCD to BLE while in bed Case discussed with patient's sister History Interval history: Patient has been last week, less confused, has very poor appetite Review of systems Constitutional: No fevers CVS: No chest pain, no orthopnea, no dyspnea on exertion, no pedal edema GI: No abdominal pain, no diarrhea, no vomiting, no constipation Respiratory: No shortness of breath, no wheezing, no coughing Hospitalist Physical - Physical exam Narrative exam: General.: Appears chronically ill, cachectic HEENT: Moist mucous membranes, extraocular muscles intact, no lymphadenopathy Neck: supple Cardiac: S1-S2 heard Lungs: clear to auscultation bilaterally Abdomen: soft , nontender, nondistended, bowel sounds positive Extremities: no edema clubbing or cyanosis Skin: no rash or lesions Neurologic: no gross focal deficits Psych: calm, and cooperative - Constitutional Vitals: Temp Pulse Resp BP Pulse Ox 97.4 F L 67 18 158/79 98 12/18/18 07:22 12/18/18 09:49 12/18/18 07:22 12/18/18 09:49 12/18/18 10:00 General appearance: Present: mild distress, cachectic, disheveled Results - Labs CBC & Chem 7: 12/17/18 05:14 12/17/18 13:23 Labs: Laboratory Last Values WBC 6.4 K/mm3 (4.5-11.0) 12/17/18 05:14 RBC 4.10 M/mm3 (3.65-5.03) 12/17/18 05:14 Hgb 12.8 gm/dl (11.8-15.2) 12/17/18 05:14 Hct 37.4 % (35.5-45.6) 12/17/18 05:14 MCV 91 fl (84-94) 12/17/18 05:14 MCH 31 pg (28-32) 12/17/18 05:14 MCHC 34 % (32-34) 12/17/18 05:14 RDW 14.7 % (13.2-15.2) 12/17/18 05:14 Plt Count 146 K/mm3 (140-440) 12/17/18 05:14 Lymph % (Auto) 18.6 % (13.4-35.0) 12/17/18 05:14 [place] % (Auto) 11.3 % (0.0-7.3) H 12/17/18 05:14 Eos % (Auto) 0.5 % (0.0-4.3) 12/17/18 05:14 Baso % (Auto) 1.0 % (0.0-1.8) 12/17/18 05:14 Lymph # 1.2 K/mm3 (1.2-5.4) 12/17/18 05:14 [place] # 0.7 K/mm3 (0.0-0.8) 12/17/18 05:14 Eos # 0.0 K/mm3 (0.0-0.4) 12/17/18 05:14 Baso # 0.1 K/mm3 (0.0-0.1) 12/17/18 05:14 Add Manual Diff Complete 12/16/18 17:49 Total Counted 100 12/16/18 17:49 Seg Neutrophils % 68.6 % (40.0-70.0) 12/17/18 05:14 Seg Neuts % (Manual) 94.0 % (40.0-70.0) H 12/16/18 17:49 0 % 12/16/18 17:49 5.0 % (13.4-35.0) L 12/16/18 17:49 Reactive Lymphs % (Man) 0 % 12/16/18 17:49 1.0 % (0.0-7.3) 12/16/18 17:49 0 % (0.0-4.3) 12/16/18 17:49 0 % (0.0-1.8) 12/16/18 17:49 0 % 12/16/18 17:49 0 % 12/16/18 17:49 0 % 12/16/18 17:49 0 % 12/16/18 17:49 Nucleated RBC % Not Reportable 12/16/18 17:49 Seg Neutrophils # 4.4 K/mm3 (1.8-7.7) 12/17/18 05:14 Seg Neutrophils # Man 6.7 K/mm3 (1.8-7.7) 12/16/18 17:49 Band Neutrophils # 0.0 K/mm3 12/16/18 17:49 0.4 K/mm3 (1.2-5.4) L 12/16/18 17:49 Abs React Lymphs (Man) 0.0 K/mm3 12/16/18 17:49 0.1 K/mm3 (0.0-0.8) 12/16/18 17:49 0.0 K/mm3 (0.0-0.4) 12/16/18 17:49 0.0 K/mm3 (0.0-0.1) 12/16/18 17:49 0.0 K/mm3 12/16/18 17:49 0.0 K/mm3 12/16/18 17:49 0.0 K/mm3 12/16/18 17:49 Blast Cells # 0.0 K/mm3 12/16/18 17:49 WBC Morphology Not Reportable 12/16/18 17:49 Hypersegmented Neuts Not Reportable 12/16/18 17:49 Hyposegmented Neuts Not Reportable 12/16/18 17:49 Hypogranular Neuts Not Reportable 12/16/18 17:49 Not Reportable 12/16/18 17:49 Not Reportable 12/16/18 17:49 Not Reportable 12/16/18 17:49 Not Reportable 12/16/18 17:49 Not Reportable 12/16/18 17:49 Not Reportable 12/16/18 17:49 Consistent w auto 12/16/18 17:49 Not Reportable 12/16/18 17:49 Plt Clumps, EDTA Not Reportable 12/16/18 17:49 Not Reportable 12/16/18 17:49 Not Reportable 12/16/18 17:49 Not Reportable 12/16/18 17:49 Plt Morphology Comment Not Reportable 12/16/18 17:49 RBC Morphology Not Reportable 12/16/18 17:49 Dimorphic RBCs Not Reportable 12/16/18 17:49 Not Reportable 12/16/18 17:49 Not Reportable 12/16/18 17:49 Few 12/16/18 17:49 Few 12/16/18 17:49 Not Reportable 12/16/18 17:49 Not Reportable 12/16/18 17:49 Not Reportable 12/16/18 17:49 Not Reportable 12/16/18 17:49 Not Reportable 12/16/18 17:49 Not Reportable 12/16/18 17:49 Not Reportable 12/16/18 17:49 Not Reportable 12/16/18 17:49 Not Reportable 12/16/18 17:49 Not Reportable 12/16/18 17:49 Not Reportable 12/16/18 17:49 Not Reportable 12/16/18 17:49 Not Reportable 12/16/18 17:49 Not Reportable 12/16/18 17:49 Not Reportable 12/16/18 17:49 Acanthocytes (Spur) Not Reportable 12/16/18 17:49 Rouleaux Not Reportable 12/16/18 17:49 Not Reportable 12/16/18 17:49 Not Reportable 12/16/18 17:49 Not Reportable 12/16/18 17:49 Not Reportable 12/16/18 17:49 Hem Pathologist Commnt No 12/16/18 17:49 Sodium 136 mmol/L (137-145) L 12/17/18 13:23 Potassium 4.2 mmol/L (3.6-5.0) 12/17/18 13:23 Chloride 101.6 mmol/L (98-107) 12/17/18 13:23 Carbon Dioxide 20 mmol/L (22-30) L 12/17/18 13:23 19 mmol/L 12/17/18 13:23 BUN 9 mg/dL (9-20) 12/17/18 13:23 0.7 mg/dL (0.8-1.5) L 12/17/18 13:23 Estimated GFR > 60 ml/min 12/17/18 13:23 13 % 12/17/18 13:23 Glucose 72 mg/dL (75-100) L 12/17/18 13:23 POC Glucose 138 (70-105) H 12/16/18 20:33 Calcium 8.9 mg/dL (8.4-10.2) 12/17/18 13:23 Phosphorus 3.60 mg/dL (2.5-4.5) 12/17/18 13:23 Magnesium 1.80 mg/dL (1.7-2.3) 12/17/18 13:23 1.00 mg/dL (0.1-1.2) 12/17/18 05:14 AST 73 units/L (5-40) H 12/17/18 05:14 ALT 21 units/L (7-56) 12/17/18 05:14 115 units/L (35-129) 12/17/18 05:14 35.0 umol/L (25-60) 12/17/18 13:23 6.5 g/dL (6.3-8.2) 12/17/18 05:14 3.1 g/dL (3.9-5) L 12/17/18 13:23 0.9 % 12/17/18 05:14 41 units/L (13-60) 12/17/18 13:23 TSH 1.770 mlU/mL (0.270-4.200) 12/16/18 Unknown Free T4 1.17 ng/dL (0.76-1.46) 12/16/18 Unknown Yellow (Yellow) 12/16/18 19:27 Clear (Clear) 12/16/18 19:27 5.0 (5.0-7.0) 12/16/18 19:27 Ur Specific [place] 1.012 (1.003-1.030) 12/16/18 19:27 <15 mg/dl mg/dL (Negative) 12/16/18 19:27 Neg mg/dL (Negative) 12/16/18 19:27 Tr mg/dL (Negative) 12/16/18 19:27 Sm (Negative) 12/16/18 19:27 Neg (Negative) 12/16/18 19:27 Neg (Negative) 06/14/19 19:27 < 2.0 mg/dL (<2.0) 12/16/18 19:27 Ur Leukocyte Esterase Neg (Negative) 12/16/18 19:27 1.0 /HPF (0.0-6.0) 12/16/18 19:27 2.0 /HPF (0.0-6.0) 12/16/18 19:27 1+ /HPF (Negative) 12/16/18 19:27 Few /HPF 12/16/18 19:27 Salicylates < 0.3 mg/dL (2.8-20.0) L 12/16/18 17:49 Presumptive negative 12/16/18 19:36 Presumptive negative 12/16/18 19:36 Acetaminophen < 5.0 ug/mL (10.0-30.0) L 12/16/18 17:49 Ur Barbiturates Screen Presumptive negative 12/16/18 19:36 Ur Phencyclidine Scrn Presumptive negative 12/16/18 19:36 Ur Amphetamines Screen Presumptive negative 12/16/18 19:36 U Benzodiazepines Scrn Presumptive positive 12/16/18 19:36 Presumptive negative 12/16/18 19:36 U Marijuana (THC) Screen Presumptive positive 12/16/18 19:36 Disclamer 12/16/18 19:36 Plasma/Serum Alcohol < 0.01 % (0-0.07) 12/16/18 17:49 Active Medications - Current Medications Current Medications: Generic Name Dose Route Start Last Admin Trade Name Freq PRN Reason Stop Dose Admin Acetaminophen 650 mg 12/16/18 20:00 12/17/18 09:43 Tylenol PO 650 mg Q4H PRN Administration Pain MILD(1-3)/Fever >100.5/ESPITIA Albuterol 2.5 mg 12/16/18 20:00 Proventil IH Q4HRT PRN Shortness Of Breath Amlodipine Besylate 5 mg 12/17/18 13:00 12/18/18 09:49 Norvasc PO 5 mg DAILY RICO Administration Folic Acid 1 mg 12/17/18 13:00 12/18/18 09:48 Folvite PO 1 mg QDAY RICO Administration Dextrose/Sodium Chloride 1,000 mls @ 42 mls/hr 12/17/18 13:00 12/17/18 13:39 D5/0.45ns IV 42 mls/hr DIRECT RICO Administration Lorazepam 2 mg 12/17/18 12:41 12/18/18 06:21 Ativan PO 2 mg Q1H PRN Administration CIWA-Ar 8-15 Lorazepam 4 mg 12/17/18 12:41 12/18/18 04:57 Ativan IV 4 mg Q1H PRN Administration CIWA-Ar 16-25 Lorazepam 4 mg 12/17/18 12:41 Ativan IV Q15MIN PRN CIWA-Ar >25 Nicotine 14 mg 12/18/18 10:00 12/18/18 09:48 Habitrol TD 14 mg QDAY RICO Administration Ondansetron HCl 4 mg 12/16/18 20:00 Zofran IV Q8H PRN Nausea And Vomiting Sodium Chloride 10 ml 12/16/18 22:00 12/18/18 09:48 Sodium Chloride Flush Syringe 10 Ml IV 10 ml BID RICO Administration Sodium Chloride 10 ml 12/16/18 20:00 Sodium Chloride Flush Syringe 10 Ml IV PRN PRN LINE FLUSH Thiamine HCl 100 mg 12/17/18 13:00 12/18/18 09:48 Vitamin B-1 PO 100 mg QDAY RICO Administration
[2018-12-18] MEDS: TYLENOL PO PRN (13:56)
[2018-12-18] MEDS: D5/0.45NS 1,000 ML IV SCH (21:38)
[2018-12-19] MEDS ORDERED: HALDOL IM ONE (01:00)
[2018-12-19] MEDS ORDERED: HALDOL IM PRN (03:00)
--- NOTE | 2018-12-19 07:17 | Progress Note ---
Assessment and Plan Assessment and plan: 68 YO Male with HCV, ETOH Dependence with Cirrhosis, Hepatic Failure, Nicotine Dependence presents to ED for evaluation. P he was brought in by his sister because he was stuporous and confused, has a history of alcohol abuse and marijuana abuse and tobacco abuse Past History Past Medical History: hepatitis, other (cirrhosis) Thyroid Function tests are normal, ammonia level within normal limits Chest x-ray shows no acute findings, evidence of mild COPD CT head is negative for any acute findings Acute metabolic Encephalopathy CT Head, Neuro checks, thyroid panel, neuro checks, seizure precautions, aspira tion precautions, fall precautions. . Liver failure CT Head, Neuro check, Liver Function Tests, Acidosis IVF resuscitation therapy, repeat bmp in AM. etoh dependence and withdrawal - ciwa protocol, thiamine and folate -d5 containing IVF -preventative health counseling performed for 17 minutes Nicotine dependence Smoking cessation counseling, > 10 minutes -nicotine patch prn htn cont norvasc Hypoglycemia D5 Infusion, accu check, supportive care. Severe malnutrition Continue nutritional supplements, dietitian consult DVT prophylaxis SCD to BLE while in bed Case discussed with patient's sister History Interval history: Patient has been last week, less confused, has very poor appetite Review of systems Constitutional: No fevers CVS: No chest pain, no orthopnea, no dyspnea on exertion, no pedal edema GI: No abdominal pain, no diarrhea, no vomiting, no constipation Respiratory: No shortness of breath, no wheezing, no coughing Hospitalist Physical - Physical exam Narrative exam: General.: Appears chronically ill, cachectic HEENT: Moist mucous membranes, extraocular muscles intact, no lymphadenopathy Neck: supple Cardiac: S1-S2 heard Lungs: clear to auscultation bilaterally Abdomen: soft , nontender, nondistended, bowel sounds positive Extremities: no edema clubbing or cyanosis Skin: no rash or lesions Neurologic: no gross focal deficits Psych: calm, and cooperative - Constitutional Vitals: Temp Pulse Resp BP Pulse Ox 98.4 F 78 18 121/71 97 12/19/18 02:49 12/18/18 19:42 12/19/18 02:49 12/19/18 02:49 12/18/18 19:42 General appearance: Present: mild distress, cachectic, disheveled Results - Labs CBC & Chem 7: 12/17/18 05:14 12/17/18 13:23 Labs: Laboratory Last Values WBC 6.4 K/mm3 (4.5-11.0) 12/17/18 05:14 RBC 4.10 M/mm3 (3.65-5.03) 12/17/18 05:14 Hgb 12.8 gm/dl (11.8-15.2) 12/17/18 05:14 Hct 37.4 % (35.5-45.6) 12/17/18 05:14 MCV 91 fl (84-94) 12/17/18 05:14 MCH 31 pg (28-32) 12/17/18 05:14 MCHC 34 % (32-34) 12/17/18 05:14 RDW 14.7 % (13.2-15.2) 12/17/18 05:14 Plt Count 146 K/mm3 (140-440) 12/17/18 05:14 Lymph % (Auto) 18.6 % (13.4-35.0) 12/17/18 05:14 [place] % (Auto) 11.3 % (0.0-7.3) H 12/17/18 05:14 Eos % (Auto) 0.5 % (0.0-4.3) 12/17/18 05:14 Baso % (Auto) 1.0 % (0.0-1.8) 12/17/18 05:14 Lymph # 1.2 K/mm3 (1.2-5.4) 12/17/18 05:14 [place] # 0.7 K/mm3 (0.0-0.8) 12/17/18 05:14 Eos # 0.0 K/mm3 (0.0-0.4) 12/17/18 05:14 Baso # 0.1 K/mm3 (0.0-0.1) 12/17/18 05:14 Add Manual Diff Complete 12/16/18 17:49 Total Counted 100 12/16/18 17:49 Seg Neutrophils % 68.6 % (40.0-70.0) 12/17/18 05:14 Seg Neuts % (Manual) 94.0 % (40.0-70.0) H 12/16/18 17:49 0 % 12/16/18 17:49 5.0 % (13.4-35.0) L 12/16/18 17:49 Reactive Lymphs % (Man) 0 % 12/16/18 17:49 1.0 % (0.0-7.3) 12/16/18 17:49 0 % (0.0-4.3) 12/16/18 17:49 0 % (0.0-1.8) 12/16/18 17:49 0 % 12/16/18 17:49 0 % 12/16/18 17:49 0 % 12/16/18 17:49 0 % 12/16/18 17:49 Nucleated RBC % Not Reportable 12/16/18 17:49 Seg Neutrophils # 4.4 K/mm3 (1.8-7.7) 12/17/18 05:14 Seg Neutrophils # Man 6.7 K/mm3 (1.8-7.7) 12/16/18 17:49 Band Neutrophils # 0.0 K/mm3 12/16/18 17:49 0.4 K/mm3 (1.2-5.4) L 12/16/18 17:49 Abs React Lymphs (Man) 0.0 K/mm3 12/16/18 17:49 0.1 K/mm3 (0.0-0.8) 12/16/18 17:49 0.0 K/mm3 (0.0-0.4) 12/16/18 17:49 0.0 K/mm3 (0.0-0.1) 12/16/18 17:49 0.0 K/mm3 12/16/18 17:49 0.0 K/mm3 12/16/18 17:49 0.0 K/mm3 12/16/18 17:49 Blast Cells # 0.0 K/mm3 12/16/18 17:49 WBC Morphology Not Reportable 12/16/18 17:49 Hypersegmented Neuts Not Reportable 12/16/18 17:49 Hyposegmented Neuts Not Reportable 12/16/18 17:49 Hypogranular Neuts Not Reportable 12/16/18 17:49 Not Reportable 12/16/18 17:49 Not Reportable 12/16/18 17:49 Not Reportable 12/16/18 17:49 Not Reportable 12/16/18 17:49 Not Reportable 12/16/18 17:49 Not Reportable 12/16/18 17:49 Consistent w auto 12/16/18 17:49 Not Reportable 12/16/18 17:49 Plt Clumps, EDTA Not Reportable 12/16/18 17:49 Not Reportable 12/16/18 17:49 Not Reportable 12/16/18 17:49 Not Reportable 12/16/18 17:49 Plt Morphology Comment Not Reportable 12/16/18 17:49 RBC Morphology Not Reportable 12/16/18 17:49 Dimorphic RBCs Not Reportable 12/16/18 17:49 Not Reportable 12/16/18 17:49 Not Reportable 12/16/18 17:49 Few 12/16/18 17:49 Few 12/16/18 17:49 Not Reportable 12/16/18 17:49 Not Reportable 12/16/18 17:49 Not Reportable 12/16/18 17:49 Not Reportable 12/16/18 17:49 Not Reportable 12/16/18 17:49 Not Reportable 12/16/18 17:49 Not Reportable 12/16/18 17:49 Not Reportable 12/16/18 17:49 Not Reportable 12/16/18 17:49 Not Reportable 12/16/18 17:49 Not Reportable 12/16/18 17:49 Not Reportable 12/16/18 17:49 Not Reportable 12/16/18 17:49 Not Reportable 12/16/18 17:49 Not Reportable 12/16/18 17:49 Acanthocytes (Spur) Not Reportable 12/16/18 17:49 Rouleaux Not Reportable 12/16/18 17:49 Not Reportable 12/16/18 17:49 Not Reportable 12/16/18 17:49 Not Reportable 12/16/18 17:49 Not Reportable 12/16/18 17:49 Hem Pathologist Commnt No 12/16/18 17:49 Sodium 136 mmol/L (137-145) L 12/17/18 13:23 Potassium 4.2 mmol/L (3.6-5.0) 12/17/18 13:23 Chloride 101.6 mmol/L (98-107) 12/17/18 13:23 Carbon Dioxide 20 mmol/L (22-30) L 12/17/18 13:23 19 mmol/L 12/17/18 13:23 BUN 9 mg/dL (9-20) 12/17/18 13:23 0.7 mg/dL (0.8-1.5) L 12/17/18 13:23 Estimated GFR > 60 ml/min 12/17/18 13:23 13 % 12/17/18 13:23 Glucose 72 mg/dL (75-100) L 12/17/18 13:23 POC Glucose 91 (70-105) 12/19/18 06:32 Calcium 8.9 mg/dL (8.4-10.2) 12/17/18 13:23 Phosphorus 3.60 mg/dL (2.5-4.5) 12/17/18 13:23 Magnesium 1.80 mg/dL (1.7-2.3) 12/17/18 13:23 1.00 mg/dL (0.1-1.2) 12/17/18 05:14 AST 73 units/L (5-40) H 12/17/18 05:14 ALT 21 units/L (7-56) 12/17/18 05:14 115 units/L (35-129) 12/17/18 05:14 35.0 umol/L (25-60) 12/17/18 13:23 6.5 g/dL (6.3-8.2) 12/17/18 05:14 3.1 g/dL (3.9-5) L 12/17/18 13:23 0.9 % 12/17/18 05:14 41 units/L (13-60) 12/17/18 13:23 TSH 1.770 mlU/mL (0.270-4.200) 12/16/18 Unknown Free T4 1.17 ng/dL (0.76-1.46) 12/16/18 Unknown Yellow (Yellow) 12/16/18 19:27 Clear (Clear) 12/16/18 19:27 5.0 (5.0-7.0) 12/16/18 19:27 Ur Specific [place] 1.012 (1.003-1.030) 12/16/18 19:27 <15 mg/dl mg/dL (Negative) 12/16/18 19:27 Neg mg/dL (Negative) 12/16/18 19:27 Tr mg/dL (Negative) 12/16/18 19:27 Sm (Negative) 12/16/18 19:27 Neg (Negative) 12/16/18 19:27 Neg (Negative) 12/16/18 19:27 < 2.0 mg/dL (<2.0) 12/16/18 19:27 Ur Leukocyte Esterase Neg (Negative) 12/16/18 19:27 1.0 /HPF (0.0-6.0) 12/16/18 19:27 2.0 /HPF (0.0-6.0) 12/16/18 19:27 1+ /HPF (Negative) 12/16/18 19:27 Few /HPF 12/16/18 19:27 Salicylates < 0.3 mg/dL (2.8-20.0) L 12/16/18 17:49 Presumptive negative 12/16/18 19:36 Presumptive negative 12/16/18 19:36 Acetaminophen < 5.0 ug/mL (10.0-30.0) L 12/16/18 17:49 Ur Barbiturates Screen Presumptive negative 12/16/18 19:36 Ur Phencyclidine Scrn Presumptive negative 12/16/18 19:36 Ur Amphetamines Screen Presumptive negative 12/16/18 19:36 U Benzodiazepines Scrn Presumptive positive 12/16/18 19:36 Presumptive negative 12/16/18 19:36 U Marijuana (THC) Screen Presumptive positive 12/16/18 19:36 Disclamer 12/16/18 19:36 Plasma/Serum Alcohol < 0.01 % (0-0.07) 12/16/18 17:49 Active Medications - Current Medications Current Medications: Generic Name Dose Route Start Last Admin Trade Name Freq PRN Reason Stop Dose Admin Acetaminophen 650 mg 12/16/18 20:00 12/18/18 13:56 Tylenol PO 650 mg Q4H PRN Administration Pain MILD(1-3)/Fever >100.5/ESPITIA Albuterol 2.5 mg 12/16/18 20:00 Proventil IH Q4HRT PRN Shortness Of Breath Amlodipine Besylate 5 mg 12/17/18 13:00 12/18/18 09:49 Norvasc PO 5 mg DAILY RICO Administration Folic Acid 1 mg 12/17/18 13:00 12/18/18 09:48 Folvite PO 1 mg QDAY RICO Administration Haloperidol Lactate 2 mg 12/19/18 03:00 Haldol IM ONCE PRN Agitation Dextrose/Sodium Chloride 1,000 mls @ 42 mls/hr 12/17/18 13:00 12/18/18 21:38 D5/0.45ns IV 42 mls/hr DIRECT RICO Administration Lorazepam 2 mg 12/17/18 12:41 12/18/18 21:36 Ativan PO 2 mg Q1H PRN Administration CIWA-Ar 8-15 Lorazepam 4 mg 12/17/18 12:41 12/18/18 04:57 Ativan IV 4 mg Q1H PRN Administration CIWA-Ar 16-25 Lorazepam 4 mg 12/17/18 12:41 Ativan IV Q15MIN PRN CIWA-Ar >25 Nicotine 14 mg 12/18/18 10:00 12/18/18 09:48 Habitrol TD 14 mg QDAY RICO Administration Ondansetron HCl 4 mg 12/16/18 20:00 Zofran IV Q8H PRN Nausea And Vomiting Sodium Chloride 10 ml 12/16/18 22:00 12/18/18 21:37 Sodium Chloride Flush Syringe 10 Ml IV 10 ml BID RICO Administration Sodium Chloride 10 ml 12/16/18 20:00 Sodium Chloride Flush Syringe 10 Ml IV PRN PRN LINE FLUSH Thiamine HCl 100 mg 12/17/18 13:00 12/18/18 09:48 Vitamin B-1 PO 100 mg QDAY RICO Administration
[2018-12-19] MEDS: HABITROL TD SCH (10:08)
[2018-12-19] MEDS: NORVASC PO SCH (10:09)
[2018-12-19] MEDS: SODIUM CHLORIDE FLUSH SYRINGE 10 ML IV SCH ×2 (10:09→21:47)
[2018-12-19] MEDS: VITAMIN B-1 PO SCH (10:09)
[2018-12-19] MEDS: FOLVITE PO SCH (10:09)
--- NOTE | 2018-12-20 10:55 | Discharge Summary ---
Providers - Providers Date of Admission: 12/16/18 20:00 Attending physician: BEVERLEY SIMMONS MD 12/19/18 07:15 Consult to Dietitian/Nutrition [CONS] Routine Physician Instructions: Reason For Exam: Reason for Consult: Malnutrition 12/19/18 07:29 Physical Therapy Evaluation and Treat [CONS] Routine Comment: Reason For Exam: ataxia 12/19/18 11:48 Consult to Wound/ET Nurse [CONS] Routine Reason For Exam: wound eval Primary care physician: HUBER VELASCO Hospitalization Reason for admission: Alcohol withdrawal Condition: Stable Hospital course: 68 YO Male with HCV, ETOH Dependence with Cirrhosis, Hepatic Failure, Nicotine Dependence presents to ED for evaluation. P he was brought in by his sister because he was stuporous and confused, has a history of alcohol abuse and marijuana abuse and tobacco abuse Thyroid Function tests are normal, ammonia level within normal limits Chest x-ray shows no acute findings, evidence of mild COPD CT head is negative for any acute findings Patient was admitted to the floor for the management of alcohol withdrawal DT, metabolic encephlopathy, hypoglycemia. patient showed improvement. Resources were given for cessation of alcohol but the patient is very reluctant. patient discharged home in a stable conditions. Disposition: [id number] HOME UNDER HOME [facility] Time spent for discharge: 34 minutes - Discharge Diagnoses (1) Alcohol withdrawal delirium Status: Acute (2) Benzodiazepine intoxication Status: Acute (3) Encephalopathy Status: Acute (4) Hypoglycemia Status: Acute (5) Nicotine dependence Status: Acute Qualifiers: Nicotine product type: cigarettes Core Measure Documentation - Palliative Care Palliative Care/ Comfort Measures: Not Applicable - Core Measures Any of the following diagnoses?: none Exam - Constitutional Vitals: Temp Pulse Resp BP Pulse Ox 98.7 F 95 H 20 112/73 97 12/20/18 09:15 12/20/18 09:15 12/20/18 09:15 12/20/18 09:15 12/20/18 09:15 General appearance: Present: no acute distress - EENT Eyes: Present: PERRL ENT: hearing intact, clear oral mucosa - Neck Neck: Present: supple, normal ROM - Respiratory Respiratory effort: normal Respiratory: bilateral: CTA - Cardiovascular Heart Sounds: Present: S1 & S2. Absent: rub, click Peripheral Pulses: within normal limits - Abdominal General gastrointestinal: Present: soft, non-tender, non-distended, normal bowel sounds - Integumentary Integumentary: Present: clear, warm, dry - Musculoskeletal Musculoskeletal: gait normal, strength equal bilaterally - Psychiatric Psychiatric: appropriate mood/affect, intact judgment & insight - Neurologic Neurologic: CNII-XII intact, moves all extremities Plan Activity: no restrictions Weight Bearing Status: Full Weight Bearing Diet: regular Follow up with: HUBER VELASCO MD [Primary Care Provider] - 7 Days Prescriptions: Nicotine [Habitrol] 14 mg TD QDAY #14 patch Multivitamin [Multiple Vitamins] 1 each PO DAILY #30 tablet Thiamine [Vitamin B-1] 100 mg PO QDAY #30 tablet
[2018-12-20] MEDS: HABITROL TD SCH (10:58)
[2018-12-20] MEDS: VITAMIN B-1 PO SCH (11:01)
[2018-12-20] MEDS: FOLVITE PO SCH (11:01)
[2018-12-20] MEDS: TYLENOL PO PRN (11:01)
[2018-12-20] MEDS: NORVASC PO SCH (11:09)
[2018-12-20] MEDS: SODIUM CHLORIDE FLUSH SYRINGE 10 ML IV SCH (11:09)
[2018-12-20 12:25] VITALS: BP 126/86
== END 2018-12-20 15:35 | disposition home health service (06) | DRG 441 ==
LOC: ED 16:43 → 3A 20:00 → 2B-ACE 12-17 18:40
PROVIDERS: ADMIT Internal Medicine; ATTEND Internal Medicine
DX: K72.91 Hepatic failure, unspecified with coma (principal); G93.41 Metabolic encephalopathy; E43 Unspecified severe protein-calorie malnutrition; E87.2 Acidosis; F19.20 Other psychoactive substance dependence, uncomplicated; F10.231 Alcohol dependence with withdrawal delirium; K70.30 Alcoholic cirrhosis of liver without ascites; E16.2 Hypoglycemia, unspecified; B19.20 Unspecified viral hepatitis C without hepatic coma; F17.210 Nicotine dependence, cigarettes, uncomplicated; T42.4X5A Adverse effect of benzodiazepines, initial encounter; Y92.89 Other specified places as the place of occurrence of the external cause; F10.20 Alcohol dependence, uncomplicated; I10 Essential (primary) hypertension
CPT/HCPCS: 36415; 70450; 71045; 80048; 80053; 80307; 80320; 81001; 82040; 82140; 82962; 83690; 83735; 84100; 84439; 84443; 85007; 85025; 94760; 96361; 96365; 96375; G0378; G0480; J1630; J2060; J3411; J7030